=== PATIENT | female | born 1995 | race Caucasian/White ===

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

== ENCOUNTER 2018-05-31 18:34 | Emergency (ER) | payer OTHER ==
[2018-05-31] MEDS ORDERED: NS 1,000 ML IV ONE (20:04)
--- NOTE | 2018-05-31 20:04 | EDPHY ---
H & P Time Seen by Provider: 05/31/18 20:03 HPI/ROS: Chief complaint. Dizziness HPI. 22-year-old female with some blurry vision to both eyes this afternoon. She has spinning type dizziness. Does not feel like she will pass out. Slight headache. No fever. Slight cough. Insert exposure to sick contacts last weekend. Denies chest discomfort, shortness of breath, abdominal pain. She does wear contact lenses. Does not have pain in her eyes however. She describes the blurry vision as if she had had a bright light flash in her eyes and then somewhat altered vision after the bright light. There has been no bright light exposure however ROS 10 systems were reviewed and negative with the exception of the elements mentioned in the history of present illness Past Medical/Surgical History: Anemia Social History: Single, nonsmoker, no alcohol Smoking Status: Never smoked Physical Exam: General Appearance: Alert well-developed female mild distress vital signs are stable Eyes: Pupils equal round reactive. Funduscopic exam appears normal. There is no injection of the conjunctiva. No drainage.. ENT, Mouth: Mucous membranes are moist. Respiratory: There are no retractions, lungs are clear to auscultation. Cardiovascular: Regular rate and rhythm. Gastrointestinal: Abdomen is soft and nontender, no masses, bowel sounds normal. Neurological: Awake and alert, sensory and motor exams grossly normal. Skin: Warm and dry, no rashes. Musculoskeletal: Neck is supple nontender. Extremities symmetrical, full range of motion. Psychiatric: Patient is oriented X 3, there is no agitation. Constitutional: Initial Vital Signs Temperature (C) 36.7 C 05/31/18 18:45 Heart Rate 84 05/31/18 18:45 Respiratory Rate 16 05/31/18 18:45 Blood Pressure 101/74 05/31/18 18:45 O2 Sat (%) 99 05/31/18 18:45 O2 Delivery Mode Room Air Allergies/Adverse Reactions: No Known Allergies Allergy (Unverified 12/15/16 11:56) Home Medications: Medication Instructions Recorded Cephalexin [Keflex] 500 mg PO TID 7 Days cap 12/15/16 Ondansetron Odt [Zofran Odt] 4 mg PO Q4PRN PRN #10 tab 12/15/16 Medical Decision Making - Diagnostics EKG Interpretation: EKG interpreted by me shows normal sinus rhythm normal interval and axis. QRS is normal there is no significant ST elevation or depression. Mild sinus arrhythmia. The rate is 75 Procedures: IV normal saline. Meclizine and Tylenol orally ED Course/Re-evaluation: Re-evaluation 9:15 p.m. Patient is stable. Improved. Patient and I discussed laboratory evaluation, treatment plan including criteria for return importance of follow-up and further evaluation especially for blurry vision and her anemia. She expresses understanding and agree Differential Diagnosis: Dizziness of unclear etiology with essentially normal workup. Patient has evidence of microcytic anemia. This can be iron deficiency or thalassemia. No findings eyes. - Data Points Laboratory Results: Laboratory Results 05/31/18 20:30 05/31/18 20:30 05/31/18 05/31/18 05/31/18 20:30 20:30 20:30 WBC RBC Hgb Hct MCV MCH MCHC RDW Plt Count MPV Neut % (Auto) Lymph % (Auto) [place] % (Auto) Eos % (Auto) Baso % (Auto) Nucleat RBC Rel Count Absolute Neuts (auto) Absolute Lymphs (auto) Absolute Monos (auto) Absolute Eos (auto) Absolute Basos (auto) Absolute Nucleated RBC Immature Gran % Immature Gran # Platelet Estimate Microcytic Cells Acanthocytes (Spur) Smear Review By Sodium 135 mEq/L mEq/L REJ (135-145) Potassium 4.0 mEq/L mEq/L REJ (3.5-5.2) Chloride 103 mEq/L mEq/L REJ (97-110) Carbon Dioxide 24 mEq/l mEq/l REJ (22-31) Anion Gap 8 mEq/L mEq/L REJ (6-14) BUN 9 mg/dL mg/dL REJ (7-23) Creatinine 0.7 mg/dL mg/dL REJ (0.6-1.0) Estimated GFR > 60 REJ Glucose 85 mg/dL mg/dL REJ (70-100) Calcium 9.6 mg/dL mg/dL REJ (8.5-10.4) Beta HCG, Qual NEGATIVE 05/31/18 20:30 WBC 8.69 10^3/uL 10^3/uL (3.80-9.50) RBC 6.25 10^6/uL H 10^6/uL (4.18-5.33) Hgb 13.3 g/dL g/dL (12.6-16.3) Hct 42.2 % % (38.0-47.0) MCV 67.5 fL L fL (81.5-99.8) MCH 21.3 pg L pg (27.9-34.1) MCHC 31.5 g/dL L g/dL (32.4-36.7) RDW 17.2 % H % (11.5-15.2) Plt Count 228 10^3/uL 10^3/uL (150-400) MPV 10.8 fL fL (8.7-11.7) Neut % (Auto) 62.0 % % (39.3-74.2) Lymph % (Auto) 30.5 % % (15.0-45.0) [place] % (Auto) 6.4 % % (4.5-13.0) Eos % (Auto) 0.6 % % (0.6-7.6) Baso % (Auto) 0.3 % % (0.3-1.7) Nucleat RBC Rel Count 0.0 % % (0.0-0.2) Absolute Neuts (auto) 5.38 10^3/uL 10^3/uL (1.70-6.50) Absolute Lymphs (auto) 2.65 10^3/uL 10^3/uL (1.00-3.00) Absolute Monos (auto) 0.56 10^3/uL 10^3/uL (0.30-0.80) Absolute Eos (auto) 0.05 10^3/uL 10^3/uL (0.03-0.40) Absolute Basos (auto) 0.03 10^3/uL 10^3/uL (0.02-0.10) Absolute Nucleated RBC 0.00 10^3/uL 10^3/uL (0-0.01) Immature Gran % 0.2 % % (0.0-1.1) Immature Gran # 0.02 10^3/uL 10^3/uL (0.00-0.10) Platelet Estimate ADEQUATE (ADEQ) Microcytic Cells 1+ H Acanthocytes (Spur) 1+ H Smear Review By Pending Sodium Potassium Chloride Carbon Dioxide Anion Gap BUN Creatinine Estimated GFR Glucose Calcium Beta HCG, Qual Medications Given: Discontinued Medications Acetaminophen (Tylenol) 650 mg PO EDNOW ONE Stop: 05/31/18 20:13 Last Admin: 05/31/18 20:30 Dose: 650 mg Sodium Chloride (Ns) 1,000 mls @ 0 mls/hr IV EDNOW ONE; Wide Open PRN Reason: Protocol Stop: 05/31/18 20:05 Last Admin: 05/31/18 20:30 Dose: 1,000 mls Meclizine HCl (Meclizine Hcl) 25 mg PO EDNOW ONE Stop: 05/31/18 20:12 Last Admin: 05/31/18 20:30 Dose: 25 mg Departure - Departure Disposition: Home, Routine, Self-Care Clinical Impression: Dizziness Condition: Good Instructions: Dizziness (ED) Additional Instructions: Easy activity. Drink plenty of fluids and stay hydrated Follow-up with lead handler for your anemia Follow-up with ophthalmology for blurry vision Return for worsening symptoms Referrals: NONE *PRIMARY CARE P,. [Primary Care Provider] - As per Instructions Jose Rafael Vidal MD [Medical Doctor] - 5-7 days, call for appt. Wil Boston MD [Medical Doctor] - 2-3 days, call for appt.
[2018-05-31] MEDS ORDERED: MECLIZINE HCL 25 MG TAB PO ONE (20:11)
[2018-05-31] MEDS ORDERED: ACETAMINOPHEN 325 MG TAB PO ONE (20:12)
[2018-05-31 21:05] LABS: PLATELET COUNT 228 10^3/uL (150-400)
--- NOTE | 2018-05-31 21:07 | CPEKG ---
Test Reason : OPEN Blood Pressure : / mmHG Vent. Rate : 075 BPM Atrial Rate : 077 BPM P-R Int : 150 ms QRS Dur : 074 ms QT Int : 362 ms P-R-T Axes : 043 050 012 degrees QTc Int : 405 ms Sinus arrhythmia Borderline T abnormalities, anterior leads Confirmed by Indira Woo ([id number]) on 05/31/2018 9:06:40 PM Referred By: INDIRA WOO Confirmed By:Indira Woo
[2018-05-31 21:38] VITALS: BP 120/81
== END 2018-05-31 21:38 | disposition home or self-care (01) ==
DX: R42 Dizziness and giddiness (principal); E86.9 Volume depletion, unspecified